=== PATIENT | male | born 1960 | race Caucasian/White ===

== ENCOUNTER 2021-08-14 18:52 | Emergency (ER) | payer BC ==
[2021-08-14 20:09] VITALS: RESP 18
--- NOTE | 2021-08-14 20:23 | ED ---
General Adult HPI - General Chief complaint: Recheck/Abnormal Lab/Rx Stated complaint: Covid +, Congestion, chest tightness Time Seen by Provider: 08/14/21 19:46 Source: patient Mode of arrival: ambulatory Limitations: no limitations - History of Present Illness Initial comments: Benton is a 61yo M who presents to the ER today via private vehicle for treatment of COVID 19. Patient reports on of this week he had a runny nose, on Tuesday he woke up with sore throat. He works at a [employer] so upon arriving at work he had a rapid test was positive. He advised his of that and she encouraged him to get therapy with monoclonal antibodies. Patient did receive the Moderna vaccine early in the spring but has not had a booster shot. Patient states he has some sore throat and runny nose myalgias. - Related Data Allergies Allergy/AdvReac Type Severity Reaction Status Date / Time hydralazine Allergy Unknown Verified 08/14/21 19:34 Review of Systems ROS Statement: Those systems with pertinent positive or pertinent negative responses have been documented in the HPI. ROS Other: All systems not noted in ROS Statement are negative. Past Medical History Past Medical History: COPD, Hypertension Additional Past Medical History / Comment(s): PVC, PAC. Hypercholestremia History of Any Multi-Drug Resistant Organisms: None Reported Additional Past Surgical History / Comment(s): hernia Past Psychological History: No Psychological Hx Reported Smoking Status: Former smoker Past Alcohol Use History: Occasional Past Drug Use History: None Reported General Exam - General Exam Comments Initial Comments: Physical Exam GENERAL: Patient is well-developed and well-nourished. Patient is nontoxic and well-hydrated and is in no distress. HENT: Normocephalic, Atraumatic. EYES: PERRL, EOMI PULMONARY: Unlabored respirations. CARDIOVASCULAR: RRR Warm and well perfused extremities ABDOMEN: Non-distended SKIN: No rashes or bruising : Deferred NEUROLOGIC: Alert and oriented Normal speech Normal gait MUSCULOSKELETAL: Moving all extremities with no apparent injury PSYCHIATRIC: No SI/HI Limitations: no limitations Course Vital Signs 08/14/21 08/14/21 08/14/21 19:27 20:05 22:10 Temperature 97.8 F 98.3 F Pulse Rate 90 83 79 Respiratory 16 18 18 Rate Blood Pressure 142/85 143/94 160/82 O2 Sat by Pulse 96 95 95 Oximetry Medical Decision Making - Medical Decision Making The patient is hemodynamically stable, not hypoxic he is a candidate for monoclonal antibody therapy based on age, history of COPD and BMI. Monical antibodies were administered patient tolerated well was discharged home Disposition Clinical Impression: COVID-19 Disposition: HOME SELF-CARE Condition: Stable Instructions (If sedation given, give patient instructions): Coronavirus Disease 2019 (COVID-19) Is patient prescribed a controlled substance at d/c from ED?: No Referrals: Rafael Werner MD [Primary Care Provider] - 1-2 days
[2021-08-14] MEDS ORDERED: SODIUM CHLORIDE 0.9% 50 ML IVPB ONE (21:00)
[2021-08-14] MEDS ORDERED: CASIRIVIMAB (REGN10933) (EUA) 600 MG, IMDEVIMAB (REGN10987) (EUA) 600 MG in SODIUM CHLO... IVPB ONE (21:00)
[2021-08-14 23:09] VITALS: BP 146/83; PULSE 89; TEMP 98.4
== END 2021-08-14 23:10 | disposition home or self-care (01) ==
LOC: EC 18:52
DX: U07.1 COVID-19 (principal); I10 Essential (primary) hypertension; J44.9 Chronic obstructive pulmonary disease, unspecified; Z88.8 Allergy status to other drugs, medicaments and biological substances; Z87.891 Personal history of nicotine dependence
CPT/HCPCS: 99284; 96365; Q0243